=== PATIENT | female | born 1995 | race Caucasian/White ===

== ENCOUNTER 2017-07-10 18:58 | Emergency (ER) | payer OTHER ==
[~2017-07-10] VITALS: Ht 165.1 cm; Wt 55.0 kg
[~2017-07-10 18:58] MED LIST: CLARITIN10 MG PO; ZOLOFT100 MG PO
[2017-07-10] MEDS ORDERED: COLACE100 MG PO (21:02)
[2017-07-10 21:43] VITALS: BP 111/73
== END 2017-07-10 22:46 | disposition home or self-care (01) ==
LOC: EXP 18:58 → EME 18:58 → EXP 22:46
DX: K59.00 Constipation, unspecified (principal); R10.30 Lower abdominal pain, unspecified
CPT/HCPCS: 74000; 99281; 99284